=== PATIENT | male | born 1955 | race Caucasian/White ===

== ENCOUNTER 2019-02-06 13:27 | Emergency (ER) | payer SELFPAY, OTHER | END 2019-02-06 16:33 | disposition home or self-care (01) | LOC: FTE 13:27 | DX: L03.90 Cellulitis, unspecified (principal) | CPT/HCPCS: 99283 ==

== ENCOUNTER 2019-05-18 14:27 | Emergency (ER) | payer SELFPAY | END 2019-05-18 16:11 | disposition home or self-care (01) | LOC: FTE 16:11 | DX: L73.9 Follicular disorder, unspecified (principal) | CPT/HCPCS: 99283 ==